=== PATIENT | female | born 1970 | race Two or more races ===

== ENCOUNTER → 2019-05-11 | Outpatient (CLI) | payer OTHER | END | disposition home or self-care (01) | LOC: SONOGRAMA 09:30 | DX: E04.2 Nontoxic multinodular goiter (principal) ==

== ENCOUNTER 2023-04-11 09:49 | Outpatient (CLI) | payer OTHER | END 2023-04-11 09:53 | disposition home or self-care (01) | LOC: SONOGRAMA 09:49 | PROVIDERS: ATTEND Internal Medicine | DX: E04.1 Nontoxic single thyroid nodule (principal); E03.8 Other specified hypothyroidism ==